=== PATIENT | male | born 1955 | race Caucasian/White ===

== ENCOUNTER → 2020-05-13 07:17 | Outpatient (CLI) | payer OTHER, SELFPAY ==
[2020-05-13 08:20] LABS: Add Manual Diff / Slide Review NO; Basophils Absolute Auto 0 /uL (0-100); Basophils Percent Auto 0.6 % (0-2); Eosinophils Absolute Auto 100 /uL (0-450); Eosinophils Percent Auto 2.1 % (2-4); Hematocrit 41.5 % (41-53); Hemoglobin 14.4 g/dL (13.5-17.5); Lymphocytes Absolute Auto 1100 /uL (1100-4500); Lymphocytes Percent Auto 30.1 % (25-40); Mean Corpuscular HGB Conc 34.7 % (30-36); Mean Corpuscular Hemoglobin 32.2 PG (26-34); Mean Corpuscular Volume 92.8 fL (80-100); Monocytes Absolute Auto 400 /uL (0-900); Monocytes Percent Auto 11.8 % (3-14); Neutrophils Absolute Auto 2100 /uL (1500-7000); Neutrophils Percent Auto 55.4 % (50-75); Platelet Count 108 X10^3/uL (150-400); Red Blood Cell Count 4.47 X10^6/uL (4.5-5.9); Red Cell Distribution Width 13.2 % (11.6-14.8); White Blood Cell Count 3.8 X10^3/uL (4.5-11.0)
[2020-05-13 08:59] LABS: Alanine Aminotransferase 23 IU/L (<50); Albumin 4.2 g/dL (3.5-5.0); Albumin Globulin Ratio 1.7 (1.0-2.8); Alkaline Phosphatase 64 U/L (38-126); Aspartate Aminotransferase 29 IU/L (17-59); BUN Creatinine Ratio 19.8 (6-22); Bilirubin Total 0.7 mg/dL (0.2-1.3); Blood Urea Nitrogen 18 mg/dL (9-20); Calcium 9.7 mg/dL (8.4-10.2); Carbon Dioxide 29 mmol/L (22-32); Chloride 104 mmol/L (98-107); Cholesterol 191 mg/dL (140-199); Estimated Glomerular Filt Rate > 60.0 mL/min (>60); Globulin 2.5 g/dL (1.7-4.1); Glucose 103 mg/dL (80-110); HDL Cholesterol 62 mg/dL (40-60); HEMOLYSIS < 15 (0-50); LDL Cholesterol Calculated 115 mg/dL (<100); Potassium 4.2 mmol/L (3.4-5.1); Sodium 139 mmol/L (137-145); Total Protein 6.7 g/dL (6.3-8.2); Triglycerides 72 mg/dL (35-150)
[2020-05-13 09:23] LABS: Prostate Specific Antigen Scrn 0.209 ng/mL (0.1-4.0)
[2020-05-13 09:25] LABS: TSH w/ Reflex to FT4 4.34 uIU/mL (0.47-4.68)
== END ==
PROVIDERS: Family Provider Family Medicine; PCP Family Medicine; Referring Provider Family Medicine; Visit Provider Family Medicine
DX: Z13.220 Encounter for screening for lipoid disorders (principal)
CPT/HCPCS: 36415; 80053; 80061; 84443; 85025; G0103

== ENCOUNTER → 2021-09-03 10:53 | Outpatient (CLI) | payer OTHER, SELFPAY ==
[2021-09-03 11:21] LABS: Add Manual Diff / Slide Review NO; Basophils Absolute Auto 0 /uL (0-100); Basophils Percent Auto 0.5 % (0-2); Eosinophils Absolute Auto 0 /uL (0-450); Eosinophils Percent Auto 0.8 % (2-4); Hemoglobin 13.3 g/dL (13.5-17.5); Lymphocytes Absolute Auto 1000 /uL (1100-4500); Lymphocytes Percent Auto 18.4 % (25-40); Mean Corpuscular HGB Conc 33.2 % (30-36); Mean Corpuscular Hemoglobin 30.8 PG (26-34); Mean Corpuscular Volume 92.6 fL (80-100); Monocytes Absolute Auto 800 /uL (0-900); Monocytes Percent Auto 13.9 % (3-14); Neutrophils Absolute Auto 3700 /uL (1500-7000); Neutrophils Percent Auto 66.4 % (50-75); Platelet Count 147 X10^3/uL (150-400); Red Blood Cell Count 4.32 X10^6/uL (4.5-5.9); Red Cell Distribution Width 13.1 % (11.6-14.8); White Blood Cell Count 5.5 X10^3/uL (4.5-11.0)
[2021-09-03 11:55] LABS: Alanine Aminotransferase 35 IU/L (<50); Albumin 4.3 g/dL (3.5-5.0); Alkaline Phosphatase 64 U/L (38-126); Aspartate Aminotransferase 37 IU/L (17-59); BUN Creatinine Ratio 18.6 (6-22); Bilirubin Total 0.5 mg/dL (0.2-1.3); Blood Urea Nitrogen 18 mg/dL (9-20); Calcium 9.6 mg/dL (8.4-10.2); Carbon Dioxide 30 mmol/L (22-32); Chloride 104 mmol/L (98-107); Cholesterol 195 mg/dL (140-199); Estimated Glomerular Filt Rate > 60.0 mL/min (>60); Globulin 2.2 g/dL (1.7-4.1); Glucose 52 mg/dL (80-110); HDL Cholesterol 78 mg/dL (40-60); HEMOLYSIS < 15 (0-50); LDL Cholesterol Calculated 105 mg/dL (<100); Potassium 4.5 mmol/L (3.4-5.1); Sodium 140 mmol/L (137-145); Total Protein 6.5 g/dL (6.3-8.2); Triglycerides 60 mg/dL (35-150)
[2021-09-03 12:25] LABS: Prostate Specific Antigen Scrn 0.218 ng/mL (0.1-4.0)
[2021-09-03 12:28] LABS: Testosterone 118 ng/dL (71.8-623)
== END ==
PROVIDERS: Family Provider Family Medicine; PCP Family Medicine; Referring Provider Family Medicine; Visit Provider Family Medicine
DX: E78.5 Hyperlipidemia, unspecified (principal); Z12.5 Encounter for screening for malignant neoplasm of prostate
CPT/HCPCS: 36415; 80053; 80061; 84403; 85025; G0103

== ENCOUNTER → 2021-09-29 07:21 | Outpatient (CLI) | payer OTHER, SELFPAY ==
[2021-09-29 09:40] LABS: Follicle Stimulating Hormone 31.3 mIU/mL; Luteinizing Hormone 23.8 mIU/mL
[2021-09-29 09:56] LABS: Testosterone 127 ng/dL (71.8-623)
== END ==
PROVIDERS: Family Provider Family Medicine; PCP Family Medicine; Referring Provider Urology; Visit Provider Urology
DX: E29.1 Testicular hypofunction (principal)
CPT/HCPCS: 36415; 83001; 83002; 84146; 84403

== ENCOUNTER → 2021-10-06 07:04 | Outpatient (CLI) | payer OTHER, SELFPAY ==
[2021-10-06 08:43] LABS: Testosterone 124 ng/dL (71.8-623)
== END ==
PROVIDERS: Family Provider Family Medicine; PCP Family Medicine; Referring Provider Urology; Visit Provider Urology
DX: E29.1 Testicular hypofunction (principal)
CPT/HCPCS: 36415; 84403

== ENCOUNTER → 2022-01-29 07:09 | Outpatient (CLI) | payer OTHER, SELFPAY ==
[2022-01-29 09:31] LABS: HEMOLYSIS < 15 (0-50); Iron 134 ug/dL (49-181)
[2022-01-29 09:42] LABS: Percent Iron Saturation 37 % (20-50); Total Iron Binding Capacity 364 ug/dL (261-462); Transferrin 273 mg/dL (206-381)
[2022-01-29 09:47] LABS: Follicle Stimulating Hormone 32.9 mIU/mL; Luteinizing Hormone 21.5 mIU/mL
[2022-01-29 09:48] LABS: HCG Quantitative /Beta subunit < 2.4 mIU/mL (-2.40)
[2022-01-29 10:01] LABS: TSH w/ Reflex to FT4 4.19 uIU/mL (0.47-4.68)
[2022-01-29 10:03] LABS: Estradiol, Total 10.7 pg/mL
[2022-01-29 22:13] LABS: Alpha Fetoprotein 2.1 ng/mL (0.0-8.3)
[2022-02-04 10:37] LABS: Testosterone Free 1.95 ng/dL (5.00-21.00); Testosterone Total 195.2 ng/dL (264.0-916.0)
== END ==
PROVIDERS: Family Provider Family Medicine; PCP Family Medicine; Referring Provider Student in an Organized Health Care Education/Training Program; Visit Provider Student in an Organized Health Care Education/Training Program
DX: E29.1 Testicular hypofunction (principal)
CPT/HCPCS: 82105; 82670; 83001; 83002; 83540; 83550; 84146; 84270; 84402; 84403; 84443; 84702

== ENCOUNTER → 2022-07-19 07:58 | Outpatient (CLI) | payer OTHER, SELFPAY ==
--- NOTE | 2022-07-19 | DI.RAD.S_ITS ---
PROCEDURE: XR HAND RT MIN 3V INDICATIONS: RIGHT FINGER INJURY TECHNIQUE: 3 views of the hand(s) acquired. COMPARISON: None. FINDINGS: Bones: No fractures or dislocations. Carpal bones are normally aligned. No suspicious bony lesions. The 5th digit is in flexion at the PIP joint. Mild polyarticular joint space narrowing predominantly involving the interphalangeal joints with scattered periarticular lucencies present. Soft tissues: No suspicious soft tissue calcifications. IMPRESSION: 1. No acute fracture identified. If symptoms persist, follow-up radiographs and/or CT may be helpful for further evaluation. 2. Polyarticular joint space narrowing with scattered periarticular lucency is present indeterminate for subchondral cystic change or erosions. Dictated by: Trey Hung M.D. on 07/19/2022 at 8:54 Approved by: Trey Hung M.D. on 07/19/2022 at 8:59
== END ==
PROVIDERS: Family Provider Family Medicine; PCP Family Medicine; Referring Provider Student in an Organized Health Care Education/Training Program; Visit Provider Student in an Organized Health Care Education/Training Program
DX: S69.91XA Unspecified injury of right wrist, hand and finger(s), initial encounter (principal); X58.XXXA Exposure to other specified factors, initial encounter
CPT/HCPCS: 73130

== ENCOUNTER → 2022-09-02 10:09 | Outpatient (CLI) | payer OTHER, SELFPAY ==
[2022-09-14 14:33] LABS: Percent Free Testosterone 1.52 % (1.50-4.20); Testosterone Free 10.46 ng/dL (5.00-21.00)
== END ==
PROVIDERS: Family Provider Family Medicine; PCP Family Medicine; Referring Provider Student in an Organized Health Care Education/Training Program; Visit Provider Student in an Organized Health Care Education/Training Program
DX: G47.30 Sleep apnea, unspecified (principal); E29.1 Testicular hypofunction
CPT/HCPCS: 36415; 84402; 84403

== ENCOUNTER → 2022-09-10 08:54 | Outpatient (CLI) | payer OTHER, SELFPAY ==
[2022-09-10 10:10] LABS: Cholesterol 186 mg/dL (140-199); HDL Cholesterol 63 mg/dL (40-60); LDL Cholesterol Calculated 112 mg/dL (<100); Triglycerides 57 mg/dL (35-150)
[2022-09-10 10:30] LABS: Prostate Specific Antigen Scrn 0.496 ng/mL (0.1-4.0)
[2022-09-14 10:08] LABS: Blood Urea Nitrogen 19 mg/dL (9-20); Chloride 105 mmol/L (98-107); Potassium 4.5 mmol/L (3.4-5.1); Sodium 141 mmol/L (137-145)
[2022-09-14 10:09] LABS: Alanine Aminotransferase 17 IU/L (<50); Albumin Globulin Ratio 1.7 (1.0-2.8); Alkaline Phosphatase 69 U/L (38-126); Aspartate Aminotransferase 26 IU/L (17-59); BUN Creatinine Ratio 17.6 (6-22); Bilirubin Total 0.6 mg/dL (0.2-1.3); Calcium 9.2 mg/dL (8.4-10.2); Estimated Glomerular Filt Rate > 60 mL/min (>60); Globulin 2.4 g/dL (1.7-4.1); Glucose 94 mg/dL (80-110); HEMOLYSIS < 15 (0-50)
== END ==
PROVIDERS: Family Provider Family Medicine; PCP Family Medicine; Referring Provider Family Medicine; Visit Provider Family Medicine
DX: E78.5 Hyperlipidemia, unspecified (principal); Z12.5 Encounter for screening for malignant neoplasm of prostate; E29.1 Testicular hypofunction; R79.89 Other specified abnormal findings of blood chemistry; Z79.899 Other long term (current) drug therapy
CPT/HCPCS: 36415; 80053; 80061; G0103

== ENCOUNTER 2022-09-16 09:02 | Emergency (ER) | payer OTHER, SELFPAY ==
[2022-09-16] VITALS (33 sets, daily range): BP systolic 102–168; BP diastolic 56–88; PULSE 46–59; RESP 12–28; TEMP 36.4; O2SAT 94–100; BMI 22.4
--- NOTE | 2022-09-16 09:13 | DI.RAD.S_ITS ---
PROCEDURE: XR CHEST 1V INDICATIONS: chest pain TECHNIQUE: One view of the chest was acquired. COMPARISON: None. FINDINGS: Surgical changes and devices: Cholecystectomy clips. Lungs and pleura: Lungs are clear. No pleural effusions or pneumothorax. Mediastinum: Mediastinal contours appear normal. Heart size is normal. Bones and chest wall: No suspicious bony lesions. Overlying soft tissues appear unremarkable. IMPRESSION: No acute cardiopulmonary abnormality. Dictated by: Lico Urias M.D. on 09/16/2022 at 9:46 Approved by: Lico Urias M.D. on 09/16/2022 at 9:47
--- NOTE | 2022-09-16 09:36 | DI.CT.S_ITS ---
PROCEDURE: CT HEAD/BRAIN WO CON INDICATIONS: syncope ?seizure TECHNIQUE: Noncontrast 4.5 mm thick angled axial sections acquired from the foramen magnum to the vertex, with coronal and sagittal reformats. For radiation dose reduction, the following was used: automated exposure control, adjustment of mA and/or kV according to patient size. COMPARISON: [facility], CR, XR CHEST 1V, 09/16/2022, 9:17. [facility], CT, HEAD WITHOUT CONTRAST, 06/18/2007, 15:02. FINDINGS: Image quality: Excellent. CSF spaces: Basal cisterns are patent. No extra-axial fluid collections. The ventricles are symmetric in size and shape. Brain: No intracranial bleeds or masses. There is cerebral volume loss for age, with resultant ventricular and sulcal prominence. There are periventricular and deep white matter chronic small vessel ischemic changes. There is intracranial internal carotid artery atherosclerosis. Skull and face: Calvarium and visualized facial bones appear intact, without suspicious lesions. Sinuses: Visualized sinuses and mastoids are clear. IMPRESSION: Unremarkable noncontrast head CT for age. Dictated by: Cricket Campbell M.D. on 09/16/2022 at 9:10 Approved by: Cricket Campbell M.D. on 09/16/2022 at 9:11
--- NOTE | 2022-09-16 09:38 | ED_ITS ---
HPI - Syncope General Chief Complaint: Syncope Stated Complaint: passed out, face color changed, sweating Time Seen by Provider: 09/16/22 09:19 Source: patient Mode of arrival: Ambulatory Limitations: no limitations History of Present Illness HPI narrative: Patient is a 66-year-old male history of low testosterone but otherwise healthy presenting today with fall episode. States that he went on his morning walk w ith his and dog as he usually does during the walk he started having hallucinations. He states he was definitely seeing things that were not there denies any flashers or loss vision. No numbness tingling or weakness. They went in to have some breakfast he continued to have some hallucinations he sat down in his recliner when his noticed that his head tipped back he had some trouble breathing and appeared to have passed out. Lasted for about 1-2 minutes there was no significant shaking. He was a little confused when he woke up he does not actually remember the event. This is never happened to him before. He denies hearing any voices. Patient states he does take Cialis daily. Related Data Previous Rx's Medication Instructions Recorded tadalafil 5 mg tablet (Cialis) 5 mg PO DAILY #30 tabs 09/02/22 Allergies Allergy/AdvReac Type Severity Reaction Status Date / Time No Known Drug Allergies Allergy Verified 09/16/22 09:13 Review of Systems Review of Systems Narrative: GENERAL: Denies chills, fatigue, malaise, fever, sweats, travel HEENT: Denies sinus pain, ear pain, sore throat, difficulty swallowing, neck pain RESPIRATORY: Denies dyspnea, cough, wheezing, hemoptysis, sputum. CARDIOVASCULAR: Denies chest pain, palpitations, orthopnea, edema GASTROINTESTINAL: Denies nausea, vomiting, abdominal pain, diarrhea, constipation, melena. : Denies dysuria, frequency, incontinence, hematuria, urinary retention, flank pain. MUSCULOSKELETAL: Denies weakness, joint pain, or bony pain SKIN: No rash, no erythema, no pruritus NEUROLOGIC: See HPI PSYCHIATRIC: No concerning psychosocial issues. 12 point review of systems is negative except for those stated above and HPI Patient History Medical History Chicken pox (~1955) Elevated prolactin level Erectile dysfunction Fractures Hypogonadism in male Measles (~1959) Mumps (~1965) Rosacea (~2011) Shoulder pain (~1989) Surgical History Anesthesia Dupuytren's contracture of hand H/O circumcision History of surgery (~1954) History of surgery (~1973) Hx of vasectomy Family History Brother Heart disease Father Cancer Mother Heart disease CVA (cerebral vascular accident) Social History marital status: unmarried,single Previous occupational history: retired Smoking Status: Never smoker alcohol intake: current substance use type: does not use caffeine: No Smoking Status: Never smoker alcohol intake frequency: holidays/special occasions only Substance Use Type: does not use Exam Initial Vital Signs Initial Vital Signs: Vital Signs Temperature 97.6 F 09/16/22 09:07 Pulse Rate 57 L 09/16/22 09:07 Respiratory Rate 17 09/16/22 09:07 Blood Pressure 157/76 H 09/16/22 09:07 Pulse Oximetry 100 09/16/22 09:07 Oxygen Delivery Method 09/16/22 09:07 GENERAL: Alert pleasant 66-year-old male and in no acute distress. HEENT: Head atraumatic,EOMI, pupils reactive, face symmetric, moist mucous me mbranes CARDIOVASCULAR: Regular rate and rhythm without murmurs, rubs or gallops. RESPIRATORY: Breath sounds equal bilaterally, no wheezes rales or rhonchi. ABDOMEN: Soft, nontender. Normoactive bowel sounds all 4 quadrants. No guarding or rebound. EXTREMITIES: Normal range of motion, no clubbing or edema. Neurovascularly intact NEUROLOGICAL: Alert and oriented x4.Normal gait and speech. Cranial nerves II through XII grossly intact. Good [id number], good [id number], strength equal bilaterally, no dysarthria or aphasia, sensation in tact to soft touch bilaterally, no visual changes, no facial droop SKIN: Warm, dry, no laceration, no petechiae, no rashes or lesions. Scores NIH Stroke Scale Level of Conciousness: Alert, keenly responsive Ask month/age: Answers both questions correctly. Open/close eyes, close hand: Performs both tasks correctly Best gaze horizontal: Normal Visual brown: No visual loss Facial palsy: Normal symetrical movement Left arm drift: No drift for full 10 sec Right arm drift: No drift for full 10 sec Left leg drift: No drift for full 5 sec Right leg drift: No drift for full 5 sec Limb ataxia: Absent Sensory on face/arms/legs: Normal, no sensory loss Best language: No aphasia, normal Dysarthria: Normal Extinction or inattention: No abnormality Total NIH Stroke scale score: 0 Course Orders Ordered: ED Orders 09/16/22 10:57 COVID19 -Nasal RAPID/Pre-Proc Stat 09/16/22 11:30 Trop I [Troponin I] Stat Vital Signs Vital signs: Vital Signs - 8 hr 09/16/22 11:40 09/16/22 11:40 09/16/22 11:50 Pulse Rate 54 L Respiratory Rate Blood Pressure 121/70 119/71 Pulse Oximetry 100 Oxygen Delivery Method 09/16/22 11:50 09/16/22 12:00 09/16/22 12:00 Pulse Rate 54 L 53 L Respiratory Rate Blood Pressure 115/72 Pulse Oximetry 100 100 Oxygen Delivery Method 09/16/22 12:10 09/16/22 12:10 09/16/22 12:21 Pulse Rate 54 L Respiratory Rate Blood Pressure 119/73 124/81 Pulse Oximetry 100 Oxygen Delivery Method 09/16/22 12:21 09/16/22 12:30 09/16/22 12:30 Pulse Rate 54 L 54 L Respiratory Rate 28 H Blood Pressure 118/76 Pulse Oximetry 100 96 Oxygen Delivery Method Room Air 09/16/22 12:40 09/16/22 12:40 09/16/22 12:50 Pulse Rate 54 L Respiratory Rate Blood Pressure 113/64 112/65 Pulse Oximetry 98 Oxygen Delivery Method 09/16/22 12:50 09/16/22 13:00 09/16/22 13:00 Pulse Rate 52 L 50 L Respiratory Rate 15 17 Blood Pressure 110/63 Pulse Oximetry 98 95 Oxygen Delivery Method Room Air 09/16/22 13:10 09/16/22 13:10 09/16/22 13:20 Pulse Rate 52 L Respiratory Rate 18 Blood Pressure 111/66 111/67 Pulse Oximetry 97 Oxygen Delivery Method 09/16/22 13:20 09/16/22 13:30 09/16/22 13:30 Pulse Rate 53 L 56 L Respiratory Rate 13 Blood Pressure 104/62 Pulse Oximetry 96 97 Oxygen Delivery Method Room Air 09/16/22 14:00 09/16/22 14:00 09/16/22 14:30 Pulse Rate 52 L Respiratory Rate Blood Pressure 112/65 117/58 L Pulse Oximetry 98 Oxygen Delivery Method Room Air 09/16/22 14:30 09/16/22 15:00 09/16/22 15:00 Pulse Rate 49 L 46 L Respiratory Rate 12 14 Blood Pressure 106/63 Pulse Oximetry 95 96 Oxygen Delivery Method 09/16/22 15:30 09/16/22 15:30 09/16/22 16:00 Pulse Rate 51 L Respiratory Rate 18 Blood Pressure 111/63 116/62 Pulse Oximetry 94 Oxygen Delivery Method 09/16/22 16:00 09/16/22 16:30 09/16/22 16:30 Pulse Rate 51 L 49 L Respiratory Rate 20 16 Blood Pressure 108/61 Pulse Oximetry 97 96 Oxygen Delivery Method 09/16/22 17:00 09/16/22 17:00 Pulse Rate 49 L Respiratory Rate 23 Blood Pressure 113/62 Pulse Oximetry 97 Oxygen Delivery Method Room Air MDM - Syncope Lab Data Result diagrams: 09/16/22 09:26 09/16/22 09:26 Labs: Lab Results 09/16/22 09/16/22 09/16/22 Range/Units 09:26 09:26 09:26 WBC 3.8 L (4.5-11.0) X10^3/uL RBC 4.77 (4.5-5.9) X10^6/uL Hgb 14.5 (13.5-17.5) g/dL Hct 43.0 (41-53) % MCV 90.2 (80-100) fL MCH 30.4 (26-34) PG MCHC 33.7 (30-36) % RDW 14.3 (11.6-14.8) % Plt Count 111 L (150-400) X10^3/uL Neut % (Auto) 53.1 (50-75) % Lymph % (Auto) 31.5 (25-40) % Winn % (Auto) 12.1 (3-14) % Eos % (Auto) 2.6 (2-4) % Baso % (Auto) 0.7 (0-2) % Neut # (Auto) 2000 (1514-0664) /uL Lymph # (Auto) 1200 (5559-5790) /uL Winn # (Auto) 500 (0-900) /uL Eos # (Auto) 100 (0-450) /uL Baso # (Auto) 0 (0-100) /uL PT 11.5 (10.1-12.7) SECONDS INR 1.0 (0.9-1.3) APTT 27 (26-36) SECONDS D-Dimer (<500) ng/ml Sodium 140 (137-145) mmol/L Potassium 4.2 (3.4-5.1) mmol/L Chloride 104 (98-107) mmol/L Carbon Dioxide 29 (22-32) mmol/L BUN 16 (9-20) mg/dL Creatinine 0.94 (0.66-1.25) mg/dL Estimated GFR > 60 (>60) mL/min BUN/Creatinine Ratio 17.0 (6-22) Glucose 114 H (80-110) mg/dL Lactate (0.7-2.1) mmol/L Calcium 9.1 (8.4-10.2) mg/dL Magnesium 2.3 (1.6-2.3) mg/dL Total Bilirubin 0.5 (0.2-1.3) mg/dL AST 29 (17-59) IU/L ALT 21 (<50) IU/L Alkaline Phosphatase 71 (38-126) U/L Total Creatine Kinase 98 (55-170) U/L CK-MB (CK-2) TNP CK-MB (CK-2) Rel Index TNP Troponin I < 0.012 (0.01-0.034) ng/mL Total Protein 7.1 (6.3-8.2) g/dL Albumin 4.3 (3.5-5.0) g/dL Globulin 2.8 (1.7-4.1) g/dL Albumin/Globulin Ratio 1.5 (1.0-2.8) Lipase 66 (23-300) U/L TSH (0.47-4.68) uIU/mL Prolactin (3.7-17.9) ng/mL SARS-CoV-2 (PCR) (Negative) 10/20/22 10/20/22 10/20/22 Range/Units 09:26 09:26 09:26 WBC (4.5-11.0) X10^3/uL RBC (4.5-5.9) X10^6/uL Hgb (13.5-17.5) g/dL Hct (41-53) % MCV (80-100) fL MCH (26-34) PG MCHC (30-36) % RDW (11.6-14.8) % Plt Count (150-400) X10^3/uL Neut % (Auto) (50-75) % Lymph % (Auto) (25-40) % Winn % (Auto) (3-14) % Eos % (Auto) (2-4) % Baso % (Auto) (0-2) % Neut # (Auto) (6518-0464) /uL Lymph # (Auto) (3437-7843) /uL Winn # (Auto) (0-900) /uL Eos # (Auto) (0-450) /uL Baso # (Auto) (0-100) /uL PT (10.1-12.7) SECONDS INR (0.9-1.3) APTT (26-36) SECONDS D-Dimer 287 (<500) ng/ml Sodium (137-145) mmol/L Potassium (3.4-5.1) mmol/L Chloride (98-107) mmol/L Carbon Dioxide (22-32) mmol/L BUN (9-20) mg/dL Creatinine (0.66-1.25) mg/dL Estimated GFR (>60) mL/min BUN/Creatinine Ratio (6-22) Glucose (80-110) mg/dL Lactate 1.2 (0.7-2.1) mmol/L Calcium (8.4-10.2) mg/dL Magnesium (1.6-2.3) mg/dL Total Bilirubin (0.2-1.3) mg/dL AST (17-59) IU/L ALT (<50) IU/L Alkaline Phosphatase (38-126) U/L Total Creatine Kinase (55-170) U/L CK-MB (CK-2) CK-MB (CK-2) Rel Index Troponin I (0.01-0.034) ng/mL Total Protein (6.3-8.2) g/dL Albumin (3.5-5.0) g/dL Globulin (1.7-4.1) g/dL Albumin/Globulin Ratio (1.0-2.8) Lipase (23-300) U/L TSH (0.47-4.68) uIU/mL Prolactin 26.6 H (3.7-17.9) ng/mL SARS-CoV-2 (PCR) (Negative) 09/16/22 09/16/22 09/16/22 Range/Units 09:26 10:57 11:30 WBC (4.5-11.0) X10^3/uL RBC (4.5-5.9) X10^6/uL Hgb (13.5-17.5) g/dL Hct (41-53) % MCV (80-100) fL MCH (26-34) PG MCHC (30-36) % RDW (11.6-14.8) % Plt Count (150-400) X10^3/uL Neut % (Auto) (50-75) % Lymph % (Auto) (25-40) % Winn % (Auto) (3-14) % Eos % (Auto) (2-4) % Baso % (Auto) (0-2) % Neut # (Auto) (1995-7278) /uL Lymph # (Auto) (6943-1907) /uL Winn # (Auto) (0-900) /uL Eos # (Auto) (0-450) /uL Baso # (Auto) (0-100) /uL PT (10.1-12.7) SECONDS INR (0.9-1.3) APTT (26-36) SECONDS D-Dimer (<500) ng/ml Sodium (137-145) mmol/L Potassium (3.4-5.1) mmol/L Chloride (98-107) mmol/L Carbon Dioxide (22-32) mmol/L BUN (9-20) mg/dL Creatinine (0.66-1.25) mg/dL Estimated GFR (>60) mL/min BUN/Creatinine Ratio (6-22) Glucose (80-110) mg/dL Lactate (0.7-2.1) mmol/L Calcium (8.4-10.2) mg/dL Magnesium (1.6-2.3) mg/dL Total Bilirubin (0.2-1.3) mg/dL AST (17-59) IU/L ALT (<50) IU/L Alkaline Phosphatase (38-126) U/L Total Creatine Kinase (55-170) U/L CK-MB (CK-2) CK-MB (CK-2) Rel Index Troponin I < 0.012 (0.01-0.034) ng/mL Total Protein (6.3-8.2) g/dL Albumin (3.5-5.0) g/dL Globulin (1.7-4.1) g/dL Albumin/Globulin Ratio (1.0-2.8) Lipase (23-300) U/L TSH 6.30 H (0.47-4.68) uIU/mL Prolactin (3.7-17.9) ng/mL SARS-CoV-2 (PCR) Negative (Negative) Imaging Data Chest x-ray: Radiologist's Impression: : Manuel Avalos MR#: [id number] : 1955 Acct:[id number] Age/Sex: 66 / M Date of Service: 09/16/22 Loc: ED Accession Number: [id number] ?? Procedure: XR chest 1V Ordering Provider: Marline Grier D.O. PROCEDURE:? XR CHEST 1V ? INDICATIONS:? chest pain ? TECHNIQUE:? One view of the chest was acquired.? ? COMPARISON:? None. ? FINDINGS:? ? Surgical changes and devices:? Cholecystectomy clips.? ? Lungs and pleura:? Lungs are clear.? No pleural effusions or pneumothorax.? ? Mediastinum:? Mediastinal contours appear normal.? Heart size is normal.? ? Bones and chest wall:? No suspicious bony lesions.? Overlying soft tissues appear unremarkable.? ? IMPRESSION:? No acute cardiopulmonary abnormality. ? ? ? Dictated by: Lico Urias M.D. on 09/16/2022 at 9:46 ? ? CT scan - head: Radiologist's Impression: Signed Patient: Manuel Avalos MR#: [id number] : 1955 Acct:[id number] Age/Sex: 66 / M Date of Service: 09/16/22 Loc: ED Accession Number: [id number] ?? Procedure: CT head/brain wo con Ordering Provider: Marline Grire D.O. PROCEDURE:? CT HEAD/BRAIN WO CON ? INDICATIONS:? syncope ?seizure ? TECHNIQUE:? Noncontrast 4.5 mm thick angled axial sections acquired from the foramen magnum to the vertex, with coronal and sagittal reformats.? For radiation dose reduction, the following was used:? automated exposure control, adjustment of mA and/or kV according to p atient size.? ? COMPARISON:? [facility], CR, XR CHEST 1V, 09/16/2022, 9:17.? [facility], CT, HEAD WITHOUT CONTRAST, 06/18/2007, 15:02. ? FINDINGS:? Image quality:? Excellent.? ? CSF spaces:? Basal cisterns are patent.? No extra-axial fluid collections.? The ventricles are symmetric in size and shape.? ? Brain:? No intracranial bleeds or masses.? There is cerebral volume loss for age, with resultant ventricular and sulcal prominence.? There are periventricular and deep white matter chronic small vessel ischemic changes.? There is intracranial internal carotid artery atherosclerosis.? ? Skull and face:? Calvarium and visualized facial bones appear intact, without suspicious lesions.? ? Sinuses:? Visualized sinuses and mastoids are clear.? IMPRESSION:? ? Unremarkable noncontrast head CT for age. ? ? Dictated by: Cricket Campbell M.D. on 09/16/2022 at 9:10 ECG Data Interpretation: Normal sinus rhythm rate 57 ND interval 194 QRS 90 QTC 418 EKG 2. T-wave inversion in lead 1 and aVL thought to be limb reversal off but the tech is competent it is not EKG 3. Normal sinus rhythm no T-wave inversion no ST elevation similar to the 1st EKG [facility] Narrative Medical decision making narrative: Patient had a syncopal episode while at rest. It was brief. NIH stroke scale is negative head CT is negative blood work is overall reassuring. However he had a recurrent syncopal episode while in the emergency department. His heart rate went down as low as 29 he was bradycardic for about 15-20 seconds. He recovered quickly. It was sinus rhythm he is not on any AV abram blockers. There does not appear to be an 80 block A repeat EKG does show new T-wave inversion in 1 and aVL computer suggests possible limb reversal however attack double checked and is positive that there is no reversal. Dr. Damico, cardiology has [facility] consult in regards to patient's syncope and bradycardia. Agrees with sick sinus syndrome, will need pacemaker in transfer [facility] thought that they might have beds later this afternoon but not sure Cardiology at [place] updated patient's symptoms test results states that patient may need a pacemaker he is happily able to see patient once in the hospital but recommends admitting to hospitalist. Hospitalist Dr. Anglin at [place] has been updated on patient's symptoms test results and kindly accepts patient. Awaiting to see if [facility] has bed availability [facility] reconsulted unfortunately no bed availability this afternoon possibly tomorrow. Discharge Plan Departure Patient Disposition: [facility] Clinical Impression: Syncope due to sick sinus syndrome Prescriptions: No Action tadalafil [Cialis] 5 mg tablet 5 mg PO DAILY Qty: 30 12RF Referrals: Eusebio Santos MD [Primary Care Provider] -
[2022-09-16 09:42] LABS: Prothrombin Time 11.5 SECONDS (10.1-12.7)
[2022-09-16 09:44] LABS: PTT Partial Thromboplastin Tim 27 SECONDS (26-36)
[2022-09-16 09:50] LABS: Alanine Aminotransferase 21 IU/L (<50); Albumin 4.3 g/dL (3.5-5.0); Albumin Globulin Ratio 1.5 (1.0-2.8); Alkaline Phosphatase 71 U/L (38-126); Aspartate Aminotransferase 29 IU/L (17-59); Bilirubin Total 0.5 mg/dL (0.2-1.3); Blood Urea Nitrogen 16 mg/dL (9-20); Calcium 9.1 mg/dL (8.4-10.2); Carbon Dioxide 29 mmol/L (22-32); Chloride 104 mmol/L (98-107); Creatine Kinase 98 U/L (55-170); Estimated Glomerular Filt Rate > 60 mL/min (>60); Globulin 2.8 g/dL (1.7-4.1); Glucose 114 mg/dL (80-110); HEMOLYSIS < 15 (0-50); Lactate (Lactic Acid) 1.2 mmol/L (0.7-2.1); Lipase 66 U/L (23-300); Magnesium 2.3 mg/dL (1.6-2.3); Potassium 4.2 mmol/L (3.4-5.1); Sodium 140 mmol/L (137-145); Total Protein 7.1 g/dL (6.3-8.2)
[2022-09-16 09:58] LABS: Add Manual Diff / Slide Review NO; Basophils Absolute Auto 0 /uL (0-100); Basophils Percent Auto 0.7 % (0-2); Eosinophils Absolute Auto 100 /uL (0-450); Eosinophils Percent Auto 2.6 % (2-4); Hemoglobin 14.5 g/dL (13.5-17.5); Lymphocytes Absolute Auto 1200 /uL (1100-4500); Lymphocytes Percent Auto 31.5 % (25-40); Mean Corpuscular HGB Conc 33.7 % (30-36); Mean Corpuscular Hemoglobin 30.4 PG (26-34); Mean Corpuscular Volume 90.2 fL (80-100); Monocytes Absolute Auto 500 /uL (0-900); Monocytes Percent Auto 12.1 % (3-14); Neutrophils Absolute Auto 2000 /uL (1500-7000); Neutrophils Percent Auto 53.1 % (50-75); Platelet Count 111 X10^3/uL (150-400); Red Blood Cell Count 4.77 X10^6/uL (4.5-5.9); Red Cell Distribution Width 14.3 % (11.6-14.8); White Blood Cell Count 3.8 X10^3/uL (4.5-11.0)
[2022-09-16 10:00] LABS: Troponin I < 0.012 ng/mL (0.01-0.034)
[2022-09-16 10:06] LABS: Prolactin 26.6 ng/mL (3.7-17.9)
[2022-09-16 10:59] LABS: D Dimer 287 ng/ml (<500)
--- NOTE | 2022-09-16 11:17 | PC.NURSE ---
at 1028 am pt bradycardia down to 28bpm lowest. lasted approx 5 mins. pt felt slow and like im going to pass out
[2022-09-16 11:36] LABS: COVID19 -Nasal RAPID Negative (Negative)
--- NOTE | 2022-09-16 11:36 | PC.NURSE ---
Pt aaox3/3, breathing even and unlabored, denies SOB/CP. Pt skin warm and dry. x2 patent IV lines present on assessment. Pt speaking in full sentences, clear and coherent, denies dizziness.
[2022-09-16 11:59] LABS: Troponin I < 0.012 ng/mL (0.01-0.034)
--- NOTE | 2022-09-16 12:28 | PC.NURSE ---
facesheet faxed at [phone] fax # [phone] facesheet and neg covid faxed at [phone] fax # [phone] called at 1150 to follow up with coremaker supervisor at [facility] she is on rounds and will call me back once in her office ph # [phone]
--- NOTE | 2022-09-16 15:18 | PC.NURSE ---
patient personal verónica placed in med room fridge
== END 2022-09-16 17:30 | disposition short-term general hospital (02) ==
PROVIDERS: Emergency Provider Emergency Medicine; Family Provider Family Medicine; PCP Family Medicine
DX: R55 Syncope and collapse (principal); R07.9 Chest pain, unspecified; R00.1 Bradycardia, unspecified; Z20.822 Contact with and (suspected) exposure to COVID-19
CPT/HCPCS: 36415; 70450; 71045; 80053; 82550; 83605; 83690; 83735; 84146; 84443; 84484; 85025; 85379; 85610; 85730; 87635; 93005; 93010; 99284; C9803

== ENCOUNTER → 2023-11-09 12:23 | Outpatient (CLI) | payer OTHER, SELFPAY ==
[2023-11-09 13:12] LABS: Add Manual Diff / Slide Review NO; Basophils Absolute Auto 0 /uL (0-100); Basophils Percent Auto 0.7 % (0-2); Eosinophils Absolute Auto 100 /uL (0-450); Eosinophils Percent Auto 1.9 % (2-4); Hematocrit 41.3 % (41-53); Hemoglobin 14.1 g/dL (13.5-17.5); Lymphocytes Absolute Auto 1100 /uL (1100-4500); Lymphocytes Percent Auto 26.8 % (25-40); Mean Corpuscular Hemoglobin 31.5 PG (26-34); Mean Corpuscular Volume 92.6 fL (80-100); Monocytes Absolute Auto 500 /uL (0-900); Neutrophils Absolute Auto 2500 /uL (1500-7000); Neutrophils Percent Auto 59.6 % (50-75); Platelet Count 120 X10^3/uL (150-400); Red Blood Cell Count 4.46 X10^6/uL (4.5-5.9); Red Cell Distribution Width 13.2 % (11.6-14.8); White Blood Cell Count 4.2 X10^3/uL (4.5-11.0)
[2023-11-09 13:53] LABS: Prolactin 20.9 ng/mL (3.7-17.9)
[2023-11-09 14:07] LABS: Prostate Specific Antigen 0.379 ng/mL (0.10-4.00)
[2023-11-15 06:42] LABS: Percent Free Testosterone 1.13 % (1.50-4.20); Testosterone Total 283.6 ng/dL (264.0-916.0)
== END ==
PROVIDERS: Family Provider Family Medicine; PCP Family Medicine; Referring Provider Student in an Organized Health Care Education/Training Program; Visit Provider Student in an Organized Health Care Education/Training Program
DX: E29.1 Testicular hypofunction (principal)
CPT/HCPCS: 36415; 84146; 84153; 84402; 84403; 85025

== ENCOUNTER 2024-02-14 08:12 | Day surgery (SDC) | payer OTHER, SELFPAY ==
--- NOTE | 2024-02-14 | PATH_ITS ---
[facility] Accession Number: [id number] No. of containers..01 Tissue . 01 Material submitted: . rectum - RECTAL POLYP . 01 Diagnosis: RECTAL POLYP: Tubular adenoma. MRV 02/17/2024 1424 Local . 01 Electronically signed: . Saeid Wahl MD, PhD, Pathologist NPI- [id number] . 01 Gross description: . RECTAL POLYP: Received in formalin is 1 fragment(s) of bacon, soft tissue measuring 0.3 x 0.3 x 0.3 cm submitted entirely in 1 cassette(s) /KENNEDY 02/15/20242008 Local . 01 Pathologist provided ICD-10: D12.8 . 01 CPT . 573064 Specimen Comment: A courtesy copy of this report has been sent to [phone] Performed at: 01 [facility] [address] [place] [address] [id number] MD Edil Keys MD Phone: [phone]
[2024-02-14 08:37] VITALS: BP 136/74; PULSE 56; RESP 16; TEMP 36.4; O2SAT 99
[2024-02-14] MEDS: LACTATED RINGERS 1,000 ML 42 ML IV (08:46)
--- NOTE | 2024-02-14 09:59 | PM.HP.1 ---
History of Present Illness History of Present Illness Date Patient Seen: 02/14/24 Time Patient Seen: 09:59 Chief complaint: Colonoscopy Narrative: 68-year-old man here for screening colonoscopy. Last colonoscopy 10 years ago normal. No family history of intestinal malignancy. No abdominal concerns today. [facility] Medical History Elevated prolactin level Hypogonadism in male Erectile dysfunction Shoulder pain (~1989) Fractures Rosacea (~2011) Mumps (~1965) Measles (~1959) Chicken pox (~1954) Surgical History Hx of vasectomy H/O circumcision Anesthesia Dupuytren's contracture of hand History of surgery (~1973) History of surgery (~1954) Family History Brother Heart disease Father Cancer Mother Heart disease CVA (cerebral vascular accident) Social History marital status: unmarried,single Previous occupational history: retired Smoking Status: Never smoker alcohol intake: current substance use type: does not use caffeine: No Meds Home Medications and Allergies Home Medications Medication Instructions Recorded Confirmed Type tadalafil 10 mg tablet 5 mg (1/2 x 10 mg) PO DAILY #30 07/04/23 02/14/24 Rx tabs testosterone 1 % (25 mg/2.5 gram) 1 packet transdermal DAILY 12/08/23 02/14/24 History transdermal gel packet sodium,potassium,mag sulfates 17.5 See Rx Instructions PO .COMPLEX 01/06/24 Rx gram-3.13 gram-1.6 gram oral soln #354 mL (Suprep Bowel Prep Kit) Allergies Allergy/AdvReac Type Severity Reaction Status Date / Time No Known Drug Allergies Allergy Verified 02/14/24 08:36 Exam Vital Signs (past 8 hours): - 02/14/24 08:37 Temperature 97.5 F L Pulse Rate 56 L Respiratory Rate 16 Blood Pressure 136/74 Pulse Oximetry 99 Oxygen Delivery Method Room Air Oxygen Delivery Method Room Air Narrative Exam Narrative: General adult man alert oriented no acute distress Chest nonlabored respiration Extremities warm well perfused Assessment & Plan Assessment & Plan narrative: The patient requires colorectal screening and colonoscopy is recommended. Technical details were discussed. Risks, benefits, alternatives explained. Risks including but not limited to myocardial infarction, aspiration, bleeding, pain, missed lesion, incomplete examination, need for further radiographic studies, colonic perforation, and need for major abdominal surgery were discussed. All questions were answered to their satisfaction, and they are in agreement with this plan.
--- NOTE | 2024-02-14 10:07 | P.OP.COLON_ITS ---
Operative Date/Time/Diagnoses Date of procedure: 02/14/24 Time of procedure: 10:07 Pre-op diagnosis: Colorectal screening Procedure & Clinicians Study performed: Colonoscopy Same procedure as scheduled: Yes Indications: Colorectal screening Surgeon: Iftikhar Barnes Procedure Notes Procedure in detail: The history and physical was performed/updated and the patient is ASA class is 1. The procedure was discussed in detail with the patient. Potential risks complications including infection, bleeding, missed diagnosis, perforation, need for surgery, and were explained. Their questions were answered and informed consent was obtained. Patient was brought to the procedure room and placed standard monitoring equipment. The patient's vital signs were monitored continuously throughout the entire procedure. Prior to starting time-out was performed. The patient was placed in the left lateral recumbent position. Procedural sedation was administered by anesthesia. Examination began with a thorough inspection of the perianal area there was no evidence of fissures, fistulae, external hemorrhoids or cutaneous malignancy. The colonoscopy scope was then placed into the anal canal and was advanced to the cecum, which was identified by the ileocecal valve , the appendiceal orifice and the confluence of the taenia. The scope was then slowly withdrawn examining colon thoroughly in all directions, irrigating it of any residual stool. The scope was retroflexed within the rectum The patient tolerated the procedure well. They will be discharged once criteria are met. The prep was of fair quality. The withdrawl time was 6 minutes. FINDINGS * Rectal polyp 10 cm from verge removed with biopsy forceps. 5 mm diameter. Specimen(s): other (Rectal polyp) Impression: Normal sigmoidoscopy Post-procedure Recommendations: High fiber diet Plan for aftercare: Follow-up is dependent on pathology findings likely 5 years. Disposition: same day surgery
[2024-02-14 10:25] VITALS: BP 89/56; PULSE 49; RESP 12; TEMP 37.2; O2SAT 97
[2024-02-14 10:30] VITALS: BP 92/57; PULSE 49; RESP 13; TEMP 37.2; O2SAT 98
[2024-02-14 10:35] VITALS: BP 99/66; PULSE 55; RESP 12; TEMP 37.2; O2SAT 97
[2024-02-14 10:45] VITALS: BP 107/65; PULSE 51; RESP 18; TEMP 36.5; O2SAT 100
--- NOTE | 2024-02-14 10:53 | SUR.PHASEII ---
Pt with unwitnessed fall while getting himself dress. States he had a very, slow fall after some dizziness after dressing himself. It was more like lying on the ground with right arm on to the ground and shoulder touching chair. Pt stood himself up, steady afterwards. Apple juice given, VSS. Denied dizziness and Alert, oriented x4 and neuro intact. Dr srivastava saw patient prior to discharge. Ok to go home. No bruises and scrapes or painful areas. Denies hitting his head.
== END 2024-02-14 10:53 | disposition home or self-care (01) ==
PROVIDERS: Family Provider Family Medicine; PCP Family Medicine; Referring Provider Surgery; Visit Provider Surgery
PROC: 0DJD8ZZ Inspection of Lower Intestinal Tract, Via Natural or Artificial Opening Endoscopic (ICD-10-PCS; CPT 45378; principal; 2024-02-14 09:15)
DX: Z12.11 Encounter for screening for malignant neoplasm of colon (principal); D12.8 Benign neoplasm of rectum
CPT/HCPCS: 45380; J2704

== ENCOUNTER → 2024-04-10 07:52 | Outpatient (CLI) | payer OTHER, SELFPAY ==
[2024-04-10 09:00] LABS: Alanine Aminotransferase 17 IU/L (<50); Albumin 4.3 g/dL (3.5-5.0); Albumin Globulin Ratio 1.7 (1.0-2.8); Alkaline Phosphatase 66 U/L (38-126); Aspartate Aminotransferase 26 IU/L (17-59); BUN Creatinine Ratio 14.4 (6-22); Bilirubin Total 0.7 mg/dL (0.2-1.3); Blood Urea Nitrogen 17 mg/dL (9-20); Calcium 9.3 mg/dL (8.4-10.2); Carbon Dioxide 25 mmol/L (22-32); Chloride 108 mmol/L (98-107); Cholesterol 186 mg/dL (140-199); Estimated Glomerular Filt Rate > 60 mL/min (>60); Globulin 2.5 g/dL (1.7-4.1); Glucose 95 mg/dL (80-110); HDL Cholesterol 61 mg/dL (40-60); HEMOLYSIS < 15 (0-50); LDL Cholesterol Calculated 111 mg/dL (<100); Potassium 4.8 mmol/L (3.4-5.1); Sodium 140 mmol/L (137-145); Total Protein 6.8 g/dL (6.3-8.2); Triglycerides 72 mg/dL (35-150)
== END ==
PROVIDERS: Family Provider Family Medicine; PCP Family Medicine; Referring Provider Family Medicine; Visit Provider Family Medicine
DX: E78.5 Hyperlipidemia, unspecified (principal); R79.89 Other specified abnormal findings of blood chemistry
CPT/HCPCS: 36415; 80053; 80061; 84443

== ENCOUNTER → 2024-05-04 10:33 | Outpatient (CLI) | payer OTHER, SELFPAY ==
--- NOTE | 2024-05-04 10:34 | DI.ECHO.S_ITS ---
[facility]---------+ [facility] : : [address] : : [place] : : [id number] : : Phone: [phone] Echocardiogram Report + + :Name: ANASTASIIA RAZO Study Date: 05/04/2024 Height: 72 in : :Hospital ReadingLocation: Weight: 160 lb : : Gender: Male BSA: 1.9 m2 : :: 1955 Age: 68 yrs BP: 127/79 mmHg: :Reason For Study: SYNCOPE, BRADYCARDIA : :Ordering Physician: KASSIE, : :OLIMPIA Performed By: Yamile Hernadez : :Referring: OLIMPIA FERNANDO : + + Interpretation Summary The ejection fraction is estimated to be 50-55%. Diastolic parameters suggest probable normal left ventricular diastolic function and normal filling pressures. The right ventricular systolic function is normal. The right ventricular systolic pressure is estimated to be at least 25 mmHg based on an estimated right atrial pressure of 3 mm Hg. There is mild mitral valve prolapse. There is mild mitral regurgitation. The ascending aorta is at the upper limits of normal in size. Procedure: A two-dimensional transthoracic echocardiogram with color flow and Doppler was performed. The study quality was technically adequate. There is no prior echocardiogram noted for this patient. The patient was in sinus bradycardia with heart rates between 53-61 bpm during the exam. Left Ventricle: The left ventricle is normal in size and wall thickness. The ejection fraction is estimated to be 50-55%. Diastolic parameters suggest probable normal left ventricular diastolic function and normal filling pressures. Right Ventricle: The right ventricle is mildly dilated. The right ventricular systolic function is normal. Atria: The left atrium is mildly dilated. The right atrium is mildly dilated. There is no Doppler evidence for an interatrial shunt. Mitral Valve: The mitral valve leaflets appear mildly thickened, but open well. There is mild mitral valve prolapse. There is mild mitral regurgitation. Aortic Valve: The aortic valve is trileaflet. The aortic valve opens well. There is no aortic valve stenosis. No aortic regurgitation is present. Tricuspid Valve: The tricuspid valve is normal in structure and function. There is trace tricuspid regurgitation. The right ventricular systolic pressure is estimated to be at least 25 mmHg based on an estimated right atrial pressure of 3 mm Hg. Pulmonic Valve: The pulmonic valve leaflets are thin and pliable; valve motion is normal. There is mild pulmonic regurgitation. Great Vessels: The aortic root is normal size. The ascending aorta is at the upper limits of normal in size. The inferior vena cava was not well visualized. Pericardium/ Pleura There is no pericardial effusion. There is no pleural effusion. MMode/2D Measurements & Calculations LVIDd: 5.5 cm LVOT diam: 2.0 cm LVIDs: 4.1 cm Ao root diam: 3.7 cm FS: 26.3 % asc Aorta Diam: 3.9 cm EPSS: 0.66 cm Ao Arch Diam (Prox Trans): 2.9 cm IVSd: 0.65 cm LVPWd: 0.93 cm LV wade. diameter/BSA (cm/m^2): 2.9 LV sys. diameter/BSA (cm/m^2): 2.1 LA A2 area: 24.5 cm2 RA long axis: 5.7 cm LA A4 area: 20.4 cm2 RA area: 20.2 cm2 LA length (vol): 5.1 cm RA vol: 60.9 ml LA vol: 82.5 ml RA : 31.4 ml/m2 LA vol index: 42.6 ml/m2 RVD1 (basal): 4.4 cm TAPSE: 2.8 cm Doppler Measurements & Calculations Ao V2 max: 118.4 cm/sec LVOT Max Christian: 105.8 cm/sec Ao V2 mean: 82.7 cm/sec LV V1 max P.5 mmHg Ao max P.6 mmHg LV V1 VTI: 23.8 cm Ao mean P.1 mmHg KAILYN(I,D): 2.6 cm2 Ao V2 VTI: 28.0 cm KAILYN(V,D): 2.7 cm2 sev ratio: 0.85 KAILYN indexed to BSA (cm^2/m^2): 1.3 MV E max christian: 66.5 cm/sec TR max christian: 234.1 cm/sec MV A max christian: 59.5 cm/sec TR max P.9 mmHg MV E/A: 1.1 PA V2 max: 102.6 cm/sec Med Peak E' Christian: 7.7 cm/sec PA V2 mean: 71.4 cm/sec E/E' med: 8.6 PA mean P.3 mmHg Lat Peak E' Christian: 11.1 cm/sec PA pr(Accel): 37.9 mmHg E/E' lat: 6.0 E/e' average: 7.3 MV dec time: 0.19 sec SVLVOT): 72.7 ml Reading Physician:PM
== END ==
LOC: ECHO 10:34
PROVIDERS: Family Provider Family Medicine; PCP Family Medicine; Referring Provider Family Medicine; Visit Provider Family Medicine
DX: I34.0 Nonrheumatic mitral (valve) insufficiency (principal); I34.1 Nonrheumatic mitral (valve) prolapse; I37.1 Nonrheumatic pulmonary valve insufficiency; R55 Syncope and collapse
CPT/HCPCS: 93306

== ENCOUNTER → 2024-05-10 13:55 | Outpatient (CLI) | payer OTHER, SELFPAY ==
--- NOTE | 2024-06-04 11:20 | PC.NURSE ---
Addendum entered by Loli Palacios R.N. 06/04/24 11:21: Clarification: SVT rate 200's (not Afib) Original Note: lock stitch channeler notified of pt's zio patch results are uploaded; Afib HR 200's. lock stitch channeler will notify Dr. Santos
== END ==
PROVIDERS: Family Provider Family Medicine; PCP Family Medicine; Referring Provider Family Medicine; Visit Provider Family Medicine
DX: R55 Syncope and collapse (principal)
CPT/HCPCS: 93246

== ENCOUNTER → 2024-10-04 08:17 | Outpatient (CLI) | payer OTHER, SELFPAY ==
[2024-10-04 09:09] LABS: Add Manual Diff / Slide Review NO; Basophils Absolute Auto 0 /uL (0-100); Basophils Percent Auto 0.4 % (0-2); Eosinophils Absolute Auto 100 /uL (0-450); Eosinophils Percent Auto 2.2 % (2-4); Hematocrit 42.7 % (41-53); Hemoglobin 14.2 g/dL (13.5-17.5); Lymphocytes Absolute Auto 1000 /uL (1100-4500); Lymphocytes Percent Auto 25.3 % (25-40); Mean Corpuscular HGB Conc 33.3 % (30-36); Mean Corpuscular Hemoglobin 30.9 PG (26-34); Mean Corpuscular Volume 92.8 fL (80-100); Monocytes Absolute Auto 500 /uL (0-900); Monocytes Percent Auto 12.5 % (3-14); Neutrophils Absolute Auto 2400 /uL (1500-7000); Neutrophils Percent Auto 59.6 % (50-75); Platelet Count 119 X10^3/uL (150-400); Red Cell Distribution Width 14.1 % (11.6-14.8)
[2024-10-04 09:58] LABS: Prolactin 21.1 ng/mL (3.7-17.9)
[2024-10-04 10:12] LABS: Prostate Specific Antigen 0.427 ng/mL (0.10-4.00)
[2024-10-10 13:12] LABS: Percent Free Testosterone 2.09 % (1.50-4.20); Testosterone Free 6.39 ng/dL (5.00-21.00); Testosterone Total 305.8 ng/dL (264.0-916.0)
== END ==
PROVIDERS: Family Provider Family Medicine; PCP Family Medicine; Referring Provider Student in an Organized Health Care Education/Training Program; Visit Provider Student in an Organized Health Care Education/Training Program
DX: E29.1 Testicular hypofunction (principal)
CPT/HCPCS: 36415; 84146; 84153; 84402; 84403; 85025

== ENCOUNTER → 2024-10-09 07:52 | Outpatient (CLI) | payer OTHER, SELFPAY ==
--- NOTE | 2024-10-09 | DI.ECHO.S_ITS ---
[facility] +---------+ [facility] : : [address] : : [place] : : [id number] : : Phone: [phone] Echocardiogram Report + + :Name: ANASTASIIA RAZO Study Date: 10/09/2024 Height: 72 in : :Hospital ReadingLocation: Weight: 155 lb : : Gender: Male BSA: 1.9 m2 : :: 1955 Age: 69 yrs BP: 119/74 mmHg: :Reason For Study: TACHYCARDIA : :Ordering Physician: CB GILMORE Performed By: Yamile Hernadez : :Referring: CB GILMORE : + + Interpretation Summary 1. The left ventricular contractility is mildly compromised. Estimate ejection fraction is approximately 45 to 50% with global hypokinesis. No LVH. Unable to comment on diastolic function. 2. The right ventricular contractility is borderline. 3. Biatrial enlargement. All other cardiac chambers are of normal size. 4. Mild mitral valve prolapse of the anterior leaflet with mild to moderate mitral regurgitation. 5. No obvious intracardiac shunts. 6. No obvious intracardiac masses or thrombi. 7. No hemodynamically significant pericardial effusion. Conclusion: Mildly compromised left ventricular systolic function with mild to moderate mitral regurgitation due to mitral valve prolapse of the anterior leaflet. When compared with previous echocardiogram, there is a decline in systolic function with progression of the mitral regurgitation. Procedure: A two-dimensional transthoracic echocardiogram with color flow and Doppler was performed. The study quality was technically adequate. Comparison is made with the echocardiogram of 05/04/2024. The patient was in sinus bradycardia with heart rates between 47-52 bpm during the exam. Left Ventricle: The left ventricle is normal in size and wall thickness. The ejection fraction is estimated to be 40-45%. Right Ventricle: The right ventricle is normal size. Right ventricular systolic function is borderline reduced. Atria: The left atrium is moderately dilated. The right atrium is mildly dilated. There is no Doppler evidence for an interatrial shunt. Mitral Valve: The mitral valve leaflets appear mildly thickened, but open well. There is mild mitral valve prolapse. There is mild to moderate mitral regurgitation. Aortic Valve: The aortic valve is trileaflet. The aortic valve opens well. There is no aortic valve stenosis. No aortic regurgitation is present. Tricuspid Valve: The tricuspid valve is normal in structure and function. There is trace tricuspid regurgitation. Pulmonary artery pressures cannot be estimated because of the lack of a measurable TR jet velocity. Pulmonic Valve: The pulmonic valve leaflets are thin and pliable; valve motion is normal. There is trace pulmonic regurgitation. Great Vessels: The aortic root is normal size. The dimensions of the ascending aorta are normal. The inferior vena cava was not well visualized. Pericardium/ Pleura There is no pericardial effusion. There has been no significant change since the previous study. MMode/2D Measurements & Calculations LVIDd: 5.5 cm LVOT diam: 2.0 cm LVIDs: 3.7 cm Ao root diam: 3.3 cm FS: 33.6 % asc Aorta Diam: 3.6 cm EPSS: 0.61 cm Ao Arch Diam (Prox Trans): 2.8 cm IVSd: 0.82 cm LVPWd: 0.84 cm LV wade. diameter/BSA (cm/m^2): 2.9 LV sys. diameter/BSA (cm/m^2): 1.9 LA A2 area: 26.0 cm2 RA long axis: 5.4 cm LA A4 area: 20.5 cm2 RA area: 22.6 cm2 LA length (vol): 5.2 cm RA vol: 79.5 ml LA vol: 86.8 ml RA : 41.6 ml/m2 LA vol index: 45.4 ml/m2 RVD1 (basal): 3.7 cm RVD2 (mid): 2.7 cm TAPSE: 2.4 cm Doppler Measurements & Calculations Ao V2 max: 112.7 cm/sec LVOT Max Christian: 110.8 cm/sec Ao V2 mean: 82.9 cm/sec LV V1 max P.9 mmHg Ao max P.1 mmHg LV V1 VTI: 22.7 cm Ao mean P.0 mmHg KAILYN(I,D): 2.8 cm2 Ao V2 VTI: 26.2 cm KAILYN(V,D): 3.2 cm2 sev ratio: 0.87 KAILYN indexed to BSA (cm^2/m^2): 1.5 MV E max christian: 68.2 cm/sec PA V2 max: 104.8 cm/sec MV A max christian: 54.1 cm/sec PA V2 mean: 79.3 cm/sec MV E/A: 1.3 PA mean P.7 mmHg Med Peak E' Christian: 8.3 cm/sec E/E' med: 8.2 Lat Peak E' Christian: 8.9 cm/sec E/E' lat: 7.7 E/e' average: 8.0 MV dec time: 0.22 sec Pulm A Revs Christian: 19.3 cm/sec MR PISA: 1.9 cm2 Pulm A Revs Dur: 0.12 sec MR flow rate: 73.5 cm3/sec MR PISA radius: 0.55 cm SV(LVOT): 72.8 ml Reading Physician:
--- NOTE | 2024-10-09 | DI.NM.S_ITS ---
PROCEDURE: NM EXERCISE TREADMILL NON NUC COMPARISON: None. INDICATIONS: PAROXYSMAL SUPRAVENTRICULAR TACHYCARDIA FINDINGS: Patient exercised per the standard Jm protocol. Total exercise time was 11 minutes and 0 seconds. Test terminated secondary to fatigue. Maximal heart rate obtained was 200 bpm which is 133% of max braided heart rate. Maximum blood pressure was 140/70[place] [address]. DEEPALI -52%. 11.[address] depressions noted in inferior leads immediately in recovery. ST segments normalized at 3 minutes and 0 seconds into recovery. There was an episode of short RP tachycardia 34 seconds into recovery. This was resolved with Valsalva maneuver. No chest pains voiced. Normal heart rate and blood pressure response to exercise. IMPRESSION: 1. Positive exercise treadmill stress test for ischemia. 2. Excellent exercise tolerance. 3. Short RP tachycardia resolved with Valsalva maneuver. Dictated by: Amanuel Gilmore M.D. on 10/09/2024 at 16:36 Approved by: Amanuel Gilmore M.D. on 10/09/2024 at 16:40
== END ==
PROVIDERS: Family Provider Family Medicine; PCP Family Medicine; Referring Provider Internal Medicine; Visit Provider Internal Medicine
DX: I34.0 Nonrheumatic mitral (valve) insufficiency (principal); I47.10 Supraventricular tachycardia, unspecified; R00.1 Bradycardia, unspecified; R55 Syncope and collapse
CPT/HCPCS: 93017; 93306

== ENCOUNTER → 2024-12-12 08:22 | Outpatient (CLI) | payer OTHER, SELFPAY ==
[2024-12-12 08:56] LABS: Add Manual Diff / Slide Review NO; Basophils Absolute Auto 0 /uL (0-100); Basophils Percent Auto 0.4 % (0-2); Eosinophils Absolute Auto 100 /uL (0-450); Eosinophils Percent Auto 3.3 % (2-4); Hematocrit 42.2 % (41-53); Hemoglobin 14.2 g/dL (13.5-17.5); Lymphocytes Absolute Auto 1000 /uL (1100-4500); Lymphocytes Percent Auto 27.2 % (25-40); Mean Corpuscular HGB Conc 33.6 % (30-36); Mean Corpuscular Volume 92.4 fL (80-100); Monocytes Absolute Auto 500 /uL (0-900); Monocytes Percent Auto 12.4 % (3-14); Neutrophils Absolute Auto 2200 /uL (1500-7000); Neutrophils Percent Auto 56.7 % (50-75); Platelet Count 114 X10^3/uL (150-400); Red Blood Cell Count 4.57 X10^6/uL (4.5-5.9); Red Cell Distribution Width 13.3 % (11.6-14.8); White Blood Cell Count 3.9 X10^3/uL (4.5-11.0)
[2024-12-12 09:13] LABS: INR 1.1 (0.9-1.3); Prothrombin Time 12.3 SECONDS (9.4-12.5)
[2024-12-12 09:14] LABS: Alanine Aminotransferase 18 IU/L (<50); Albumin 4.3 g/dL (3.5-5.0); Alkaline Phosphatase 53 U/L (38-126); Aspartate Aminotransferase 27 IU/L (17-59); BUN Creatinine Ratio 21.9 (6-22); Bilirubin Total 0.4 mg/dL (0.2-1.3); Blood Urea Nitrogen 23 mg/dL (9-20); Calcium 9.7 mg/dL (8.4-10.2); Carbon Dioxide 30 mmol/L (22-32); Chloride 107 mmol/L (98-107); Estimated Glomerular Filt Rate > 60 mL/min (>60); Globulin 2.2 g/dL (1.7-4.1); Glucose 96 mg/dL (80-110); HEMOLYSIS < 15 (0-50); Potassium 4.8 mmol/L (3.4-5.1); Sodium 140 mmol/L (137-145); Total Protein 6.5 g/dL (6.3-8.2)
== END ==
LOC: LAB 08:24
PROVIDERS: Family Provider Family Medicine; PCP Family Medicine; Referring Provider Internal Medicine; Visit Provider Internal Medicine
DX: I50.22 Chronic systolic (congestive) heart failure (principal)
CPT/HCPCS: 36415; 80053; 85025; 85610

== ENCOUNTER → 2025-03-07 08:06 | Outpatient (CLI) | payer OTHER, SELFPAY ==
--- NOTE | 2025-03-07 08:07 | DI.ECHO.S_ITS ---
[facility] +---------+ [facility] : : [address] : : [place] : : [id number] : : Phone: [phone] Echocardiogram Report + + :Name: ANASTASIIA RAZO Study Date: 03/07/2025 Height: 72 in : :Hospital ReadingLocation: Weight: 160 lb : : Gender: Male BSA: 1.9 m2 : :: 1955 Age: 69 yrs BP: 119/74 mmHg: :Reason For Study: HEART FAILURE WITH MID RANGE EJECTION : :FRACTION : :Ordering Physician: CB GILMORE Performed By: Yamile Hernadez : :Referring: CB GILMORE : + + Interpretation Summary 1. Mildly compromised LV systolic function with EF 45-50% and mild global hypokinesis. No LVH. 2. RV contractility appears preversed in limited views. 3. Moderate to severe eccentric mitral regurgitation without obvious prolapse. 4. No obvious intracardiac masses/thrombi. 5. No hemodynamically significant pericardial effusion. Conclusion: Midly compromised LV systolic function with moderate to severe mitral regurgitation. When compared with previous study, Procedure: A two-dimensional transthoracic echocardiogram with color flow and Doppler was performed. The study quality was technically adequate. Comparison is made with the echocardiogram of 10/09/2024. The patient was in sinus bradycardia with heart rates between 50-54 bpm during the exam. Left Ventricle: The left ventricle is normal in size and wall thickness. Left ventricular ejection fraction is estimated to be 50 +/- 5%. Mitral Valve: There is moderate to severe mitral regurgitation. Pericardium/ Pleura There is no pericardial effusion. There is no pleural effusion. MMode/2D Measurements & Calculations LVIDd: 5.3 cm LVIDs: 3.9 cm FS: 27.1 % IVSd: 0.94 cm LVPWd: 0.61 cm LV wade. diameter/BSA (cm/m^2): 2.8 LV sys. diameter/BSA (cm/m^2): 2.0 Reading Physician:LILLIAM
== END ==
PROVIDERS: Family Provider Family Medicine; PCP Family Medicine; Referring Provider Internal Medicine; Visit Provider Internal Medicine
DX: I50.22 Chronic systolic (congestive) heart failure (principal); I34.0 Nonrheumatic mitral (valve) insufficiency
CPT/HCPCS: 93307

== ENCOUNTER → 2025-05-10 11:08 | Outpatient (CLI) | payer OTHER, SELFPAY ==
[2025-05-10 12:31] LABS: Add Manual Diff / Slide Review NO; Basophils Absolute Auto 0 /uL (0-100); Basophils Percent Auto 0.5 % (0-2); Eosinophils Absolute Auto 100 /uL (0-450); Hematocrit 41.3 % (41-53); Hemoglobin 14.1 g/dL (13.5-17.5); Lymphocytes Absolute Auto 900 /uL (1100-4500); Lymphocytes Percent Auto 22.6 % (25-40); Mean Corpuscular Hemoglobin 31.3 PG (26-34); Mean Corpuscular Volume 91.8 fL (80-100); Monocytes Absolute Auto 400 /uL (0-900); Monocytes Percent Auto 10.7 % (3-14); Neutrophils Absolute Auto 2600 /uL (1500-7000); Neutrophils Percent Auto 64.2 % (50-75); Platelet Count 108 X10^3/uL (150-400); Red Cell Distribution Width 13.7 % (11.6-14.8)
[2025-05-10 13:22] LABS: Prolactin 20.1 ng/mL (3.7-17.9)
[2025-05-10 13:36] LABS: Prostate Specific Antigen 0.362 ng/mL (0.10-4.00)
[2025-05-20 14:09] LABS: Percent Free Testosterone 2.23 % (1.50-4.20); Testosterone Free 7.74 ng/dL (5.00-21.00); Testosterone Total 346.9 ng/dL (264.0-916.0)
== END ==
PROVIDERS: Family Provider Family Medicine; PCP Family Medicine; Referring Provider Family Medicine; Visit Provider Student in an Organized Health Care Education/Training Program
DX: E29.1 Testicular hypofunction (principal)
CPT/HCPCS: 36415; 84146; 84153; 84402; 84403; 85025